=== PATIENT | male | born 1985 | race African-American/Black ===

== ENCOUNTER 2020-08-26 02:11 | Emergency (ER) | payer MEDICAID ==
[~2020-08-26] VITALS: Ht 185.4 cm; Wt 111.0 kg
[2020-08-26] MEDS ORDERED: KETOROLAC 60MG/2ML VIAL IM ONE (05:45)
[2020-08-26] MEDS ORDERED: OXYCODONE HCL/ACETAMINOPHEN 5/325MG TABLET PO ONE (05:45)
[2020-08-26] MEDS ORDERED: IBUP-2028 PO (07:03)
[2020-08-26 07:15] VITALS: BP 104/49
== END 2020-08-26 07:36 | disposition home or self-care (01) ==
LOC: ER 02:11
DX: M54.9 Dorsalgia, unspecified (principal); F17.200 Nicotine dependence, unspecified, uncomplicated; Z88.0 Allergy status to penicillin
CPT/HCPCS: 72100; 96372; 99283; J1885

== ENCOUNTER 2021-06-04 22:44 | Emergency (ER) | payer MEDICAID, OTHER ==
[~2021-06-04] VITALS: Ht 188 cm; Wt 100.0 kg
[~2021-06-04 22:44] MED LIST: IBUP-2028 PO
[2021-06-04] MEDS ORDERED: KETOROLAC 30MG/ML VIAL IM ONE (23:30)
[2021-06-04] MEDS ORDERED: CLINDAMYCIN HCL 150MG CAPSULE PO ONE (23:30)
[2021-06-04] MEDS ORDERED: ACETAMINOPHEN 325MG TABLET PO ONE (23:30)
[2021-06-05] MEDS ORDERED: NAPR-1176 MT (00:17)
[2021-06-05] MEDS ORDERED: CLIN-116 MT (00:17)
[2021-06-05 02:05] VITALS: BP 101/58
== END 2021-06-05 02:07 | disposition home or self-care (01) ==
LOC: ER 22:44
DX: K04.7 Periapical abscess without sinus (principal); K13.79 Other lesions of oral mucosa; Z88.0 Allergy status to penicillin
CPT/HCPCS: 70486; 96372; 99284; J1885